=== PATIENT | female | born 1990 | race Caucasian/White ===

== ENCOUNTER 2018-04-01 03:36 | Emergency (ER) | payer SELFPAY ==
[~2018-04-01] VITALS: Ht 154.9 cm; Wt 51.0 kg
[~2018-04-01 03:36] MED LIST: BACTRIM DS1 TAB PO; NO HOME MEDS
[2018-04-01] MEDS ORDERED: KEFLEX500 M1 PO (05:08)
[2018-04-01] MEDS ORDERED: PERCOCET 5/325M1 TAB PO (05:08)
[2018-04-01 05:24] VITALS: BP 119/75
== END 2018-04-01 05:34 | disposition home or self-care (01) | DRG 951 ==
LOC: ED 03:36 → ED-I 04:39 → ED 05:19
DX: F17.210 Nicotine dependence, cigarettes, uncomplicated (principal); F19.10 Other psychoactive substance abuse, uncomplicated; L02.414 Cutaneous abscess of left upper limb; L02.413 Cutaneous abscess of right upper limb

== ENCOUNTER 2023-05-08 20:05 | Emergency (ER) | payer SELFPAY ==
[~2023-05-08 20:05] MED LIST changes: +KEFLEX500 M1 PO; +PERCOCET 5/325M1 TAB PO
== END 2023-05-08 21:10 | disposition left against medical advice (07) | DRG 951 ==
LOC: ED 20:05
DX: Z53.21 Procedure and treatment not carried out due to patient leaving prior to being seen by health care provider (principal)